=== PATIENT | female | born 1975 | race Two or more races ===

== ENCOUNTER 2017-12-29 07:03 | Emergency (ER) | payer MEDICAID ==
[~2017-12-29] VITALS: Ht 157.5 cm; Wt 66.2 kg
[2017-12-29 07:09] VITALS: Ht 157.5 cm; Wt 66.2 kg
[2017-12-29 08:06] LABS: microscopic required? YES; urine erythrocyte 3+ (NEGATIVE)
[2017-12-29 08:07] LABS: BASOPHIL % 0.4 % (0-2); PLATELET COUNT 337 x10^3mcL (130-400); RED CELL DISTRIBUTION WIDTH 13.2 % (11.5-14.5)
[2017-12-29 10:09] VITALS: BP 128/64
== END 2017-12-29 10:09 | disposition home or self-care (01) ==
LOC: ED 07:03
PROVIDERS: Emergency Medicine
DX: O20.0 Threatened abortion (principal); Z3A.13 13 weeks gestation of pregnancy
CPT/HCPCS: 36415

== ENCOUNTER 2018-01-19 20:26 | Emergency (ER) | payer MEDICAID ==
[~2018-01-19] VITALS: Ht 157.5 cm; Wt 70.3 kg
[2018-01-19 20:41] VITALS: Ht 157.5 cm; Wt 70.3 kg
[2018-01-19 21:58] LABS: UA SPECIFIC GRAVITY 1.025 (1.005-1.035); microscopic required? YES; urine erythrocyte 3+ (NEGATIVE)
[2018-01-19 22:15] LABS: BASOPHIL % 0.4 % (0-2); PLATELET COUNT 340 x10^3mcL (130-400); RED CELL DISTRIBUTION WIDTH 13.2 % (11.5-14.5)
[2018-01-19 23:36] VITALS: BP 147/62
== END 2018-01-19 23:36 | disposition home or self-care (01) ==
LOC: ED 20:26
PROVIDERS: Emergency Medicine
DX: O03.9 Complete or unspecified spontaneous abortion without complication (principal); N93.9 Abnormal uterine and vaginal bleeding, unspecified; Z3A.01 Less than 8 weeks gestation of pregnancy
CPT/HCPCS: 36415

== ENCOUNTER 2018-10-30 17:14 | Emergency (ER) | payer MEDICAID ==
[~2018-10-30] VITALS: Ht 162.6 cm; Wt 70.3 kg
[2018-10-30 17:16] VITALS: Ht 162.6 cm; Wt 70.3 kg
[2018-10-30 18:45] LABS: microscopic required? YES; urine erythrocyte 3+ (NEGATIVE)
[2018-10-30 18:54] LABS: BASOPHIL % 0.5 % (0-2); PLATELET COUNT 325 x10^3mcL (130-400); RED CELL DISTRIBUTION WIDTH 13.1 % (11.5-14.5)
[2018-10-30 20:00] VITALS: BP 148/86
== END 2018-10-30 20:00 | disposition home or self-care (01) ==
LOC: ED 17:14
PROVIDERS: Emergency Medicine
DX: O02.1 Missed abortion (principal); Z98.890 Other specified postprocedural states
CPT/HCPCS: 36415